=== PATIENT | female | born 1965 | race Caucasian/White ===

== ENCOUNTER 2022-12-23 20:59 | Emergency (ER) | payer OTHER ==
[2022-12-23] MEDS ORDERED: METOCLOPRAMIDE 10 MG/2mL INJ ONE (22:01)
[2022-12-23] MEDS ORDERED: DIPHENOX/ATROP SULF 1 TAB PO ONE (22:01)
[2022-12-23] MEDS ORDERED: ONDANSETRON 4 MG/2 ML VIAL ONE (22:01)
[2022-12-23] MEDS ORDERED: NA CHLORIDE 0.9% 1,000 ML ONE (22:01)
[2022-12-23 22:18] LABS: Specific Gravity 1.008 (1.005-1.030); Urine Bacteria None Seen /HPF (<20); Urine Bilirubin NEGATIVE (Negative); Urine Blood 1+ (Negative); Urine Clarity Turbid (Clear); Urine Color Colorless (Yellow); Urine Glucose NEGATIVE (Negative); Urine Mucus Slight /HPF (None Seen); Urine Protein NEGATIVE (Negative); Urine RBC <5 /HPF (None Seen); Urine Urobilinogen Normal (Normal)
[2022-12-23 22:21] LABS: Absolute Lymphocytes (CBC) 1.9 K/uL (0.7-4.9); Hematocrit 41.2 % (36.0-45.0); MCV 85.7 fL (80-100); RBC Red Blood Cell Count 4.81 M/uL (3.86-4.86)
[2022-12-23 22:31] LABS: Bilirubin Total 0.6 mg/dL (0.2-1.0); Potassium 3.4 mEq/L (3.5-5.1); Protein, Total 7.6 g/dL (6.4-8.2)
[2022-12-24] MEDS ORDERED: NA CHLORIDE 0.9% 1,000 ML ONE (02:47)
--- NOTE | 2022-12-24 03:34 | ER ---
Nurse's Notes [facility] Name: David Odell Age: 57 yrs Sex: Female : 1965 Arrival Date: 12/23/2022 Time: 20:59 Bed 16 Private MD: Diagnosis: Acute viral gastroenteritis, nausea vomiting diarrhea Presentation: 12/23 21:12 Chief complaint: Patient states: NAUSEA AND DIARRHEA ONSET TODAY. PT ALSO REPORTS cm10 INCREASED URINATION. PT ALSO STATES THAT SHE JUST DOESN'T FEEL GOOD TODAY. Coronavirus screen: Client denies travel out of the [place] in the last 14 days. Ebola Screen: Patient denies travel to an Ebola-affected area in the 21 days before illness onset. No symptoms or risks identified at this time. Initial Sepsis Screen: Does the patient meet any 2 criteria? No. Patient's initial sepsis screen is negative. Does the patient have a suspected source of infection? No. Patient's initial sepsis screen is negative. Risk Assessment: Do you want to hurt yourself or someone else? Patient reports no desire to harm self or others. Onset of symptoms was December 23, 2022. 21:12 Method Of Arrival: Ambulatory cm10 21:12 Acuity: BRUNA 3 cm10 Triage Assessment: 21:15 General: Appears in no apparent distress. comfortable, Behavior is calm, cooperative. cm10 Pain: Denies pain. Neuro: No deficits noted. Level of Consciousness is awake, alert, obeys commands, Oriented to person, place, time, situation. Cardiovascular: No deficits noted. Respiratory: No deficits noted. Airway is patent Respiratory effort is even, unlabored, Respiratory pattern is regular, symmetrical. GI: No deficits noted. Reports diarrhea, nausea. : Reports urinary frequency. Derm: No deficits noted. Skin is intact, Skin is pink, warm \T\ dry. Historical: - Allergies: 21:14 No Known Allergies; cm10 - Home Meds: 21:14 citalopram oral [Active]; pantoprazole oral [Active]; cm10 - PMHx: 21:14 Anxiety; GERD; cm10 - Immunization history:: Adult Immunizations unknown. - Social history:: Smoking status: Patient denies any tobacco usage or history of. - Family history:: not pertinent. Screenin:21 [facility] ED Fall Risk Assessment (Adult) History of falling in the last 3 months, vc1 including since admission No falls in past 3 months (0 pts) Confusion or Disorientation No (0 pts) Intoxicated or Sedated No (0 pts) Impaired Gait No (0 pts) Mobility Assist Device Used No (0 pt) Altered Elimination Yes (1 pt) Score/Fall Risk Level 0 - 2 = Low Risk Oriented to surroundings, Maintained a safe environment, Educated pt \T\ family on fall prevention, incl call for assistance when getting out of bed. Abuse screen: Denies threats or abuse. Nutritional screening: No deficits noted. Tuberculosis screening: No symptoms or risk factors identified. Assessment: 23:00 Reassessment: Patient and/or family updated on plan of care and expected duration. Pain vc1 level reassessed. Patient is alert, oriented x 3, equal unlabored respirations, skin warm/dry/pink. Patient states feeling better. Patient states symptoms have improved. Vital Signs: 21:12 BP 159 / 94; Pulse 79; Resp 18; Temp 98.2(TE); Pulse Ox 100% on R/A; Weight 77.11 kg; cm10 Height 5 ft. 4 in. ; Pain 0/10; 23:00 BP 132 / 72; Pulse 71; Resp 17; Pulse Ox 99% ; vc1 21:12 Body Mass Index 29.18 (77.11 kg, 162.56 cm) cm10 21:12 Pain Scale: Adult cm10 ED Course: 21:00 Patient arrived in ED. am2 21:04 Zac Berg MD is Attending Physician. sp4 21:14 Triage completed. cm10 21:16 Arm band placed on Patient placed in an exam room, on a stretcher. cm10 21:34 Aliyah Fraire RN is Primary Nurse. vc1 22:08 Influenza Screen (a \T\ B) Sent. vc1 22:09 CBC with Diff Sent. vc1 22:09 CMP Sent. vc1 22:09 Lipase Sent. vc1 22:09 Urinalysis w/ reflexes Sent. vc1 22:21 Patient has correct armband on for positive identification. Bed in low position. Call vc1 light in reach. 22:22 Provided Education on: purpose of medications ordered. vc1 12/24 03:39 No provider procedures requiring assistance completed. IV discontinued, intact, vc1 bleeding controlled, No redness/swelling at site. Pressure dressing applied. Administered Medications: 12/23 22:08 Drug: Diphenoxylate-Atropine PO 2 tabs Route: PO; vc1 23:51 Follow up: Response: No adverse reaction; Marked relief of symptoms vc1 22:09 Drug: NS 0.9% IV 1000 ml Route: IV; Rate: 1 bolus; Site: left antecubital; vc1 23:51 Not Given (Patient Refused): Ondansetron IVP 4 mg IVP once; over 2 minutes vc1 23:51 Not Given (Patient Refused): metoCLOPramide IVP 10 mg IVP once; over 1 to 2 minutes vc1 Medication: 22:22 VIS not applicable for this client. vc1 Outcome: 12/24 03:33 Discharge ordered by . sp4 03:39 Discharged to home ambulatory, with significant other. vc1 03:39 Condition: good 03:39 Discharge instructions given to patient, Instructed on discharge instructions, follow up and referral plans. medication usage, Demonstrated understanding of instructions, follow-up care, medications, Prescriptions given X 2. 03:39 Patient left the ED. vc1 Signatures: Jane Lund am2 Aliyah Fraire RN RN vc1 Zac Berg MD MD sp4 Joceline Booth RN RN cm10 Corrections: (The following items were deleted from the chart) 12/23 22:12 22:08 SARS-COV-2 Antigen Rapid+I.LAB.BRZ drawn and sent. vc1 EDMS
--- NOTE | 2022-12-24 03:34 | EDPHYS ---
Physician Documentation [facility] Name: David Odell Age: 57 yrs Sex: Female : 1965 Arrival Date: 12/23/2022 Time: 20:59 Bed 16 Private MD: ED Physician Zac Begr HPI: 12/23 21:05 This 57 yrs old Black Female presents to ER via Unassigned with complaints of Decreased sp4 Appetite, Doesn't Feel Right, chills. 12/25 02:19 Very pleasant 57 year old female presents with nausea vomiting and diarrhea and feeling sp4 unwell. Historical: - Allergies: 12/23 21:14 No Known Allergies; cm10 - Home Meds: 21:14 citalopram oral [Active]; pantoprazole oral [Active]; cm10 - PMHx: 21:14 Anxiety; GERD; cm10 - Immunization history:: Adult Immunizations unknown. - Social history:: Smoking status: Patient denies any tobacco usage or history of. - Family history:: not pertinent. ROS: 12/25 02:23 Constitutional: Negative for fever, chills, and weight loss, positive for nausea sp4 diarrhea and also feeling unwell Eyes: Negative for injury, pain, redness, and discharge, ENT: Negative for injury, pain, and discharge, Neck: Negative for injury, pain, and swelling, Cardiovascular: Negative for chest pain, palpitations, and edema, Respiratory: Negative for shortness of breath, cough, wheezing, and pleuritic chest pain, Abdomen/GI: Negative for abdominal pain,, and constipation, positive for nausea and diarrhea that is watery Back: Negative for injury and pain, : Negative for injury, bleeding, discharge, and swelling, MS/Extremity: Negative for injury and deformity, Skin: Negative for injury, rash, and discoloration, Neuro: Negative for headache, weakness, numbness, tingling, and seizure, Psych: Negative for depression, anxiety, Allergy/Immunology: Negative for hives, rash, and allergies Endocrine: Negative for neck swelling, polydipsia, polyuria, polyphagia, and weight changes Hematologic/Lymphatic: Negative for swollen nodes, abnormal bleeding, and unusual bruising Exam: 02:23 Constitutional: This is a well developed, well nourished patient who is awake, alert, sp4 and in no acute distress. Head/Face: Normocephalic, atraumatic. Eyes: Pupils equal round and reactive to light, extra-ocular motions intact. Lids and lashes normal. Conjunctiva and sclera are not injected. Cornea within normal limits. Periorbital areas with no swelling, redness, or edema. ENT: Nares patent. No nasal discharge, no septal abnormalities noted. Tympanic membranes are normal and external auditory canals are clear. Oropharynx with no redness, swelling, or masses, exudates, or evidence of obstruction, uvula midline. Mucous membranes moist. Neck: Trachea midline, no thyromegaly or masses palpated, and no cervical lymphadenopathy. Supple, full range of motion without nuchal rigidity, or vertebral point tenderness. Chest/axilla: Normal chest wall appearance and motion. Nontender with no deformity. No lesions are appreciated. Cardiovascular: Regular rate and rhythm with a normal S1 and S2. No gallops, murmurs, or rubs. Normal PMI, no JVD. No pulse deficits. Respiratory: Lungs have equal breath sounds bilaterally, clear to auscultation and percussion. No rales, rhonchi or wheezes noted. No increased work of breathing, no retractions or nasal flaring. Abdomen/GI: Soft, non-tender, with normal bowel sounds. No distension or tympany. No guarding or rebound. No evidence of tenderness throughout. Back: No spinal tenderness. No costovertebral tenderness. Skin: Warm, dry with normal turgor. Normal color with no rashes, no lesions, and no evidence of cellulitis. MS/ Extremity: Pulses equal, no cyanosis. Neurovascular intact. Full, normal range of motion. Neuro: Awake and alert, GCS 15, oriented to person, place, time, and situation. Cranial nerves II-XII grossly intact. Motor strength 5/5 in all extremities. Sensory grossly intact. Psych: Awake, alert, with orientation to person, place and time. Behavior, mood, and affect are within normal limits Vital Signs: 12/23 21:12 BP 159 / 94; Pulse 79; Resp 18; Temp 98.2(TE); Pulse Ox 100% on R/A; Weight 77.11 kg; cm10 Height 5 ft. 4 in. ; Pain 0/10; 23:00 BP 132 / 72; Pulse 71; Resp 17; Pulse Ox 99% ; vc1 21:12 Body Mass Index 29.18 (77.11 kg, 162.56 cm) cm10 21:12 Pain Scale: Adult cm10 MDM: 21:15 Patient medically screened. sp4 12/24 03:30 Differential Diagnosis altered mental status, sepsis, flu. Data reviewed: vital signs, sp4 nurses notes, lab test result(s), CBC, electrolytes, Flu: negative hepatic panel, urinalysis. ED course: Patient presents with acute nausea vomiting watery diarrhea. Patient was given management here in emergency department and she felt improved. Diarrhea has subsided with Lomotil. Patient is stable for discharge home. . 12/25 02:23 Consideration of Admission/Observation Escalation of care including sp4 admission/observation considered. ED course: Patient reports feeling better. Patient stable for discharge home with advised to have clear liquid diet. 12/23 21:15 Order name: CBC with Diff; Complete Time: 03:26 sp4 12/23 21:15 Order name: CMP; Complete Time: 03:26 sp4 12/23 21:15 Order name: Lipase; Complete Time: 03:26 sp4 12/23 21:15 Order name: Urinalysis w/ reflexes; Complete Time: 03:26 4 12/23 21:16 Order name: Influenza Screen (a \T\ B); Complete Time: 03:26 4 12/23 22:12 Order name: SARS-COV-2 RT PCR; Complete Time: 03:26 EDKS 12/23 21:15 Order name: IV Saline Lock; Complete Time: 22:09 [facility] 12/23 21:15 Order name: Labs collected and sent; Complete Time: 22:09 sp4 Administered Medications: 12/23 22:08 Drug: Diphenoxylate-Atropine PO 2 tabs Route: PO; vc1 23:51 Follow up: Response: No adverse reaction; Marked relief of symptoms vc1 22:09 Drug: NS 0.9% IV 1000 ml Route: IV; Rate: 1 bolus; Site: left antecubital; vc1 23:51 Not Given (Patient Refused): Ondansetron IVP 4 mg IVP once; over 2 minutes vc1 23:51 Not Given (Patient Refused): metoCLOPramide IVP 10 mg IVP once; over 1 to 2 minutes vc1 Disposition Summary: 12/24/22 03:33 Discharge Ordered Location: Home sp4 Problem: new sp4 Symptoms: have improved sp4 Condition: Stable sp4 Diagnosis - Acute viral gastroenteritis, nausea vomiting diarrhea sp4 Followup: sp4 - With: Private Physician - When: 1 week - Reason: Recheck today's complaints Discharge Instructions: - Discharge Summary Sheet sp4 - Viral Gastroenteritis, Adult, [id number] sp4 Forms: - Patient Portal [email or web address] sp4 Prescriptions: - ondansetron 4 mg Oral Tablet,disintegrating - take 1 tablet by ORAL route every 6 hours PRN nausea; 30 tablet; Refills: 0, sp4 Product Selection Permitted - Lomotil 2.5-0.025 mg Oral Tablet - take 1 tablet by ORAL route every 6 hours As needed PRN diarrhea; 30 tablet; sp4 Refills: 0, Product Selection Permitted Signatures: Dispatcher [employer] EDAliyah Fernando RN RN vc1 Zac Berg MD MD sp4 Joceline Booth RN RN cm10 Corrections: (The following items were deleted from the chart) 22:12 21:16 SARS-COV-2 Antigen Rapid+I.LAB.BRZ ordered. EDMS EDMS
[2022-12-24 03:44] VITALS: TEMP 98.2
[2022-12-24 03:45] VITALS: BP 132/72; O2SAT 99
== END 2022-12-24 03:39 | disposition home or self-care (01) ==
LOC: ER 20:59
DX: A08.4 Viral intestinal infection, unspecified (principal); Z20.822 Contact with and (suspected) exposure to COVID-19
CPT/HCPCS: 85025; 81001; 36415; 83690; 80053; 87635; 87804 ×2; J7030 ×2; J2405; J2765